=== PATIENT | male | born 1990 | race Caucasian/White ===

== ENCOUNTER 2020-02-12 14:48 | Emergency (ER) | payer OTHER ==
[~2020-02-12] VITALS: Ht 190.5 cm; Wt 72.6 kg
[2020-02-12 15:21] VITALS: BP 123/89
[2020-02-12] MEDS ORDERED: ONDANSETRON ODT4 MG BC (15:23)
[2020-02-12] MEDS ORDERED: MINIPRESS1 MG PO (15:23)
--- NOTE | 2020-02-12 15:26 | Emergency Room Report ---
History of Present Illness General Chief Complaint: Medication Refill Source: Patient Present Illness HPI Disclaimer: Please note that this report is being documented using [employer] technology. This can lead to erroneous entry secondary to incorrect interpretation by the dictating instrument. HPI: 30-year-old male with history of drug and alcohol abuse presents requesting detox referrals and medication refills. The patient states he recently relapsed on opiates and alcohol over the past few weeks. States had been clean for some time and wants to get back into an inpatient detox program. He is also requesting medication refill of his Wellbutrin, gabapentin, prazosin and Suboxone. Reports last drink and drug use was yesterday but denies withdrawal symptoms aside from nausea. He was vomiting earlier this week but otherwise denies chest pain, shortness of breath, fatigue, syncope or near syncope. He is drinking soda at bedside without difficulty. PMH: Alcohol and drug abuse PSH: Reviewed Allergies: Penicillin Social Hx: Reports alcohol and drug use Allergies: Coded Allergies: PENICILLINS (Unverified Allergy, Unknown, 02/12/20) Uncoded Allergies: PENECILLIN (Allergy, Unknown, 02/12/20) COVID-19 Screening Contact w/high risk pt: No Experienced COVID-19 symptoms?: No COVID-19 Testing performed RECREATION CLERK: No Patient History Last Menstrual Period: na Nursing Documentation-PMH Past Medical History: No History, Except For History Of Psychiatric Problem: Yes - anxiety, manic bipolar, depression Review of Systems All Other Systems: negative except mentioned in HPI Physical Exam Vital Signs Date Time Temp Pulse Resp B/P (MAP) Pulse Ox O2 Delivery O2 Flow Rate FiO2 02/12/20 14:51 98.2 99 16 122/91 (101) 97 Room Air General: Awake and alert, no acute distress HEENT: NC/AT. EOMI. Cardiovascular: RRR. S1 and S2 normal. No murmur appreciated Resp: Normal work of breathing. No cough, wheezing or crackles appreciated Abdomen: Abdomen is soft, nondistended. Nontender Skin: Intact. No abrasions, laceration or rash over the exposed skin MSK: Normal tone and bulk. Moving all extremities. No obvious deformity. Neuro: Awake and alert. Mentating appropriately. Medical Decision Making Diagnostic Impression: Primary Impression: Encounter for medication refill ER Course Is a 30-year-old male presents requesting referral to inpatient detox services. He arrives in stable condition with stable vital signs no acute distress. Physical exam is reassuring. I discussed with patient that medication refills of his controlled substance and high doses would not be appropriate at this time. He has no signs of withdrawal but I will prescribe him Zofran and his prazosin. He was given resources for outpatient detox services and made use of the telephone to call these places. He stable for outpatient follow-up and discharge. Instructed to return with new or worsening symptoms. Last Vital Signs Date Time Temp Pulse Resp B/P (MAP) Pulse Ox O2 Delivery O2 Flow Rate FiO2 02/12/20 15:21 98.2 72 19 123/89 99 Room Air Disposition: HOME, SELF-CARE Condition: Stable Scripts Ondansetron Odt* (ZOFRAN ODT*) 4 Mg Tab.rapdis 4 MG BC EVERY 6 HOURS PRN for Nausea & Vomiting, #20 TAB 0 Refills Prov: Sanket Jauregui MD 02/12/20 Prazosin Hcl* (MINIPRESS*) 1 Mg Capsule 1 MG PO DAILY for 30 Days, #30 CAP Prov: Sanket Jauregui MD 02/12/20 Ref[facility]: [facility] Psych ER - Peds ER - [facility] Intake Hotline - [facility] - [facility] Patient Instructions: Medicine Refill at the Emergency Department Additional Instructions: In the future, refrain from using any illicit drugs as it can be hazardous to your health and even fatal. Referred to the resources listed in your discharge packet for drug and alcohol treatment centers in the area. return to the emergency department with any new or worsening symptoms. Sanket Jauregui MD Feb 12, 2020 15:26
[2020-02-12 16:08] VITALS: BP 127/86
== END 2020-02-12 16:20 | disposition home or self-care (01) ==
LOC: EMR 15:21 → EDSEX 15:21 → EMR 16:20
DX: Z76.0 Encounter for issue of repeat prescription (principal); F19.90 Other psychoactive substance use, unspecified, uncomplicated; Z72.89 Other problems related to lifestyle; Z88.0 Allergy status to penicillin
CPT/HCPCS: 99282

== ENCOUNTER 2020-02-22 18:40 | Emergency (ER) | payer OTHER ==
[~2020-02-22] VITALS: Ht 190.5 cm; Wt 77.1 kg
[~2020-02-22 18:40] MED LIST: MINIPRESS1 MG PO; ONDANSETRON ODT4 MG BC
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
[2020-02-22 18:54] VITALS: BP 131/87
[2020-02-22] MEDS: DiphenhydrAMINE 50mg/ml Inj IM ONE ×2 (19:14→19:20)
[2020-02-22] MEDS: Ketorolac 30mg Inj IM ONE ×2 (19:14→19:20)
--- NOTE | 2020-02-22 19:15 | NUR ---
ED Nurse Note: pt refusing IM meds, requesting PO. SISI Guevara notified
--- NOTE | 2020-02-22 19:25 | Emergency Room Report ---
History of Present Illness General Chief Complaint: Headache Source: Patient Present Illness HPI 30 YO male presents to the ED c/o 01/01 in severity right sided posterior RUTH x 5 days. Pt. reports no relief from Motrin. Pt. reports at the site where he had previous head injury 5.5 months ago. Pt. reports he was evaluated by a neurologist once after having a RUTH that followed his injury. Pt. reports that neurologist suggested it may be due to concussion syndrome. Pt. denies additional trauma or fall. He denies nausea, vomiting, fevers or chills. Pt. denies neck pain or stiffness. He reports having some left over T3 from previous dental work and this provided him some relief however his RUTH has returned. Pt. denies photophobia, floaters, blurry vision, paresthesias, weakness or loss of gross motor movements. Pt. denies sudden onset of his RUTH. describes progressive onset. Allergies: Coded Allergies: PENICILLINS (Unverified Allergy, Unknown, 02/12/20) Uncoded Allergies: PENECILLIN (Allergy, Unknown, 02/12/20) COVID-19 Screening Contact w/high risk pt: No Experienced COVID-19 symptoms?: Yes COVID-19 Testing performed GLAZE WIPER: Yes COVID-19 Screening: Negative COVID-19 COVID-19 Testing Source: 2 weeks ago Patient History Past Medical History: see triage record Past Surgical History: none Pertinent Family History: none Reviewed Nursing Documentation: PMH: Agreed; PSxH: Agreed Nursing Documentation-PMH Past Medical History: No Stated History Review of Systems All Other Systems: negative except mentioned in HPI Physical Exam Vital Signs Date Time Temp Pulse Resp B/P (MAP) Pulse Ox O2 Delivery O2 Flow Rate FiO2 02/22/20 18:44 99.0 104 20 131/87 (102) 98 Room Air Sp02 EP Interpretation: reviewed, normal General Appearance: no apparent distress, alert, GCS 15, non-toxic Head: normocephalic, atraumatic Eyes: bilateral eye normal inspection, bilateral eye PERRL, bilateral eye other - no photophobia ENT: hearing grossly normal, normal voice, TMs + canals normal Neck: full range of motion, no meningismus, no bony tend Respiratory: chest non-tender, lungs clear, normal breath sounds, speaking full sentences Cardiovascular #1: regular rate, rhythm Musculoskeletal: back normal, normal range of motion, gait/station normal, non- tender Neurologic: alert, motor strength/tone normal, oriented, distal neuro normal, oriented x3, sensory intact, cerebellar normal, responsive, speech normal, normal gait, no pronator, grossly normal, no focal defects, other - no ataxia. Psychiatric: judgement/insight normal Skin: no rash, normal color Medical Decision Making PA Attestation Dr. Thompson is my supervising Physician whom patient management has been discussed with. Diagnostic Impression: Primary Impression: Headache Qualified Codes: R51 - Headache Additional Impression: Post concussive syndrome ER Course 30 YO male presents to the ED c/o 01/01 in severity right sided posterior RUTH x 5 days. Pt. reports no relief from Motrin. Pt. reports at the site where he had previous head injury 5.5 months ago. Pt. reports he was evaluated by a neurologist once after having a RUTH that followed his injury. Pt. reports that neurologist suggested it may be due to concussion syndrome. Pt. denies additional trauma or fall. He denies nausea, vomiting, fevers or chills. Pt. denies neck pain or stiffness. He reports having some left over T3 from previous dental work and this provided him some relief however his RUTH has returned. Pt. denies photophobia, floaters, blurry vision, paresthesias, weakness or loss of gross motor movements. Pt. denies sudden onset of his RUTH. describes progressive onset. Ddx considered but are not limited to migraine, SAH, Pseudomotor Cerebri,, Mass lesion, Cluster RUTH, Tension RUTH, Post lumbar puncture RUTH. Vital signs: are WNL, pt. is afebrile H&PE are most consistent with headache without neurological deficits, in the setting of s/p concussion syndrome. ORDERS: - none required at this time, dx is clinical. ED INTERVENTIONS: - Reglan PO -IM Toradol- Pt. declines - IM Benadryl -- Pt. declines -50mg Benadryl PO - Excedrin Migraine PO -I do not identify an emergent condition at this time. With current presentation , pt. is stable for close outpatient follow up and conservative treatment. D/ w pt. to return promptly to ED with worsening or new symptoms.- Pt. verbalizes' understanding and agreement with proposed treatment plan. DISCHARGE: At this time pt. is stable for d/c to home. Will provide printed patient care instructions, and any necessary prescriptions. Care plan and follow up instructions have been discussed with the patient prior to discharge. Last Vital Signs Date Time Temp Pulse Resp B/P (MAP) Pulse Ox O2 Delivery O2 Flow Rate FiO2 02/22/20 18:54 99.0 97 20 131/87 98 Room Air Disposition: HOME, SELF-CARE Condition: Stable Scripts Acetamin/Butalbital/Caffeine* (FIORICET*) 1 Ea Tab 1 TAB ORAL Q6H, #6 TAB 0 Refills Prov: Paola Hayes 02/22/20 Referrals: NON PHYSICIAN (PCP) Patient Instructions: General Headache Without Cause, Post-Concussion Syndrome Additional Instructions: Take medications as directed. Follow up with a Primary Care Provider in 3-5 days For a referral to have NEUROLOGIST Evaluation, even if your symptoms have resolved. --Please review list of primary care clinics, if you do not already have a primary care provider Return sooner to ED if new symptoms occur, or current symptoms become worse. - Please note that this Emergency Department Report was dictated using [employer] special education teacher technology software, occasionally this can lead to erroneous entry secondary to interpretation by the dictation equipment. Paola Hayes Feb 22, 2020 19:25
[2020-02-22] MEDS ORDERED: FIORICET1 EA ORAL (19:29)
[2020-02-22] MEDS ORDERED: Excedrin Migraine tab ORAL ONE (19:30)
[2020-02-22 20:03] VITALS: BP 131/87
--- NOTE | 2020-02-22 20:03 | NUR ---
ER DISCHARGE NOTE: Patient is cleared to be discharged per ERMD, pt is aox4, on room air, with stable vital signs. pt was given dc and prescription instructions, pt was able to verbalize understanding, pt id band removed without complications. pt is able to ambulate with steady gait. pt took all belongings.
== END 2020-02-22 20:03 | disposition home or self-care (01) ==
LOC: EMR 18:59
DX: R51 Headache (principal); F07.81 Postconcussional syndrome; Z88.0 Allergy status to penicillin
CPT/HCPCS: 99282